=== PATIENT | female | born 1995 | race Caucasian/White ===

== ENCOUNTER 2021-01-31 04:41 | Emergency (ER) | payer OTHER, SELFPAY ==
[2021-01-31 04:49] VITALS: BP 131/91; PULSE 78; RESP 18; TEMP 36.6; O2SAT 97
--- NOTE | 2021-01-31 04:50 | DI.CT.S_ITS ---
PROCEDURE: CT KIDNEY URETER BLADDER (KUB) INDICATIONS: severe left flank pain, history of stones TECHNIQUE: Axial sections were acquired from the lung bases to the pubic symphysis. Coronal and sagittal reformats were performed. For radiation dose reduction, the following was used: automated exposure control, adjustment of mA and/or kV according to patient size. COMPARISON:None. FINDINGS: Image quality: Excellent. Lung bases: Unremarkable. Heart: No significant findings. URINARY: Right Kidney: No stones or hydronephrosis. Right Ureter: No hydroureter. Left Kidney: Mild left-sided hydronephrosis. Possible sub millimeter stone in the distal left ureter (series 2, image 82). Left Ureter: No hydroureter. Bladder: Normal wall thickness. No stones. ABDOMEN: Liver: Diffuse fatty infiltration of the liver. Gallbladder: Unremarkable. Biliary ducts: Unremarkable. Pancreas: Unremarkable. Spleen: Unremarkable. Adrenal Glands: Unremarkable. Stomach and Bowel: Stomach, small bowel loops, and colon are unremarkable. Peritoneum: No abnormal intraperitoneal fluid. No free air. Ventral Wall: No hernia. Abdominal Nodes: No enlarged retroperitoneal or mesenteric lymph nodes. Vessels: Aorta and inferior vena cava are normal in size. PELVIS: Pelvic Organs: Unremarkable. Pelvic Nodes: Unremarkable. Miscellaneous: No inguinal hernias are seen. Bones: Unremarkable. IMPRESSION: 1. Mild left-sided hydronephrosis with possible sub-millimeter stone in the distal left ureter. 2. Hepatic steatosis. Dictated by: Ara Muniz MD, PhD on 01/31/2021 at 7:25 Approved by: Ara Muniz MD, PhD on 01/31/2021 at 7:29
[2021-01-31] MEDS: KETOROLAC 30 MG/ML VIAL 15 MG IV (04:56)
[2021-01-31] MEDS: ONDANSETRON 4 MG/2 ML INJ IV (04:56)
[2021-01-31] MEDS: SODIUM CHLORIDE 0.9% 1,000 ML 1000 ML IV (04:57)
[2021-01-31 05:20] LABS: Add Manual Diff / Slide Review NO; Basophils Absolute Auto 100 /uL (0-100); Basophils Percent Auto 0.9 % (0-2); Eosinophils Absolute Auto 800 /uL (0-450); Eosinophils Percent Auto 5.4 % (2-4); Hematocrit 44.4 % (36-46); Hemoglobin 14.8 g/dL (12.0-16.0); Lymphocytes Absolute Auto 4200 /uL (1100-4500); Lymphocytes Percent Auto 26.9 % (25-40); Mean Corpuscular HGB Conc 33.3 % (30-36); Mean Corpuscular Hemoglobin 28.4 PG (26-34); Mean Corpuscular Volume 85.3 fL (80-100); Monocytes Absolute Auto 1000 /uL (0-900); Monocytes Percent Auto 6.6 % (3-14); Neutrophils Absolute Auto 9500 /uL (1500-7000); Neutrophils Percent Auto 60.2 % (50-75); Platelet Count 564 X10^3/uL (150-400); Red Blood Cell Count 5.21 X10^6/uL (4.0-5.2); Red Cell Distribution Width 13.7 % (11.6-14.8); White Blood Cell Count 15.7 X10^3/uL (4.5-11.0)
[2021-01-31 05:30] LABS: BUN Creatinine Ratio 11.8 (6-22); Blood Urea Nitrogen 15 mg/dL (7-17); Calcium 10.5 mg/dL (8.4-10.2); Carbon Dioxide 18 mmol/L (22-32); Chloride 107 mmol/L (98-107); Estimated Glomerular Filt Rate 51.3 mL/min (>60); Glucose 124 mg/dL (70-100); HEMOLYSIS < 15 (0-50); Potassium 4.1 mmol/L (3.4-5.1); Sodium 139 mmol/L (137-145)
--- NOTE | 2021-01-31 05:30 | ED.FEMALEGU ---
HPI - Female Genitourinary General Chief complaint: Urogenital-Female Stated complaint: possible kidney stone Time Seen by Provider: 01/31/21 04:45 Source: patient Mode of arrival: Wheelchair History of Present Illness HPI Narrative: 25-year-old female nonsmoker with history of kidney stones presents with a chief complaint of relatively sudden onset left flank pain radiates around to her groin. She states it is sharp and stabbing and a 10/10. She has associated nausea but denies vomiting. She states the pain largely comes and goes with the mind of its own and she is unable to find a position of comfort, however if you motions of seem to make the pain a bit worse. She has had no fever chills. She denies chest pain or shortness of breath. She is not dizzy nor weak or lightheaded. She states this feels very similar to prior episodes of kidney stone. She denies dysuria, frequency or urgency. She denies any vaginal bleeding or discharge. She denies any chance of Related Data Previous Rx's Medication Instructions Recorded hydrocodone 5 mg-acetaminophen 325 1 tab PO Q4-6H PRN #10 tab 01/31/21 mg tablet ketorolac 10 mg tablet 10 mg PO Q6H PRN #14 tab 01/31/21 tamsulosin 0.4 mg capsule (Flomax) 0.4 mg PO DAILY #10 cap 01/31/21 Allergies Allergy/AdvReac Type Severity Reaction Status Date / Time amoxicillin Allergy Verified 01/31/21 05:05 Review of Systems Review of Systems Narrative: GENERAL: Denies chills, fatigue, malaise, fever, sweats. HEENT: Denies sinus pain, ear pain, sore throat, difficulty swallowing, dizziness. RESPIRATORY: Denies dyspnea, cough, wheezing, hemoptysis, sputum. CARDIOVASCULAR: Denies chest pain, palpitations, orthopnea, edema, GASTROINTESTINAL: Denies nausea, vomiting, abdominal pain, diarrhea, constipation, melena. : See HPI MUSCULOSKELETAL: denies weakness, joint pain, or bony pain SKIN: Denies rash, skin lesions, or other NEUROLOGIC: Denies weakness, headache, numbness, change in speech, confusion, seizures, incoordination. PSYCHIATRIC: No concerning psychosocial issues. 12 point review of systems is negative except for those stated above Exam Narrative Exam Narrative: GENERAL: [25] year old patient appears stated age. Well-developed patient, in moderate distress, clearly very uncomfortable, pacing and rocking back and forth HEAD: Atraumatic. Normocephalic. EYES: Pupils equal round and reactive. Extraocular motions intact. No scleral icterus. No injection or drainage. ENT: Nose without bleeding, purulent drainage. Throat without erythema, tonsillar hypertrophy or exudate. Airway patent. NECK: Trachea midline. Non tender CARDIOVASCULAR: Regular rate and rhythm without murmurs, gallops, or rubs. RESPIRATORY: Clear to auscultation. Breath sounds equal bilaterally. No wheezes, rales, or rhonchi. GASTROINTESTINAL: Abdomen soft, non-tender, nondistended. EXTREMITIES: No edema or joint tenderness. BACK: Nontender without deformity or crepitance. No flank tenderness. NEURO: AOx3. SKIN: No rash or erythema of visible areas Initial Vital Signs Initial Vital Signs: Vital Signs Temperature 97.8 F 01/31/21 04:49 Pulse Rate 78 01/31/21 04:49 Respiratory Rate 18 01/31/21 04:49 Blood Pressure 131/91 H 01/31/21 04:49 Pulse Oximetry 97 01/31/21 04:49 Course Orders Ordered: ED Orders 01/31/21 04:50 CT kidney ureter bladder (KUB) Stat 01/31/21 05:00 Basic Metabolic Panel Stat Complete Blood Count AUTO DIFF Stat Discontinued Medications Hydrocodone Bitart/Acetaminophen (Hydrocodone/Acet 5/325 Prepack) 1 bottle MISC SEEINSTR ONE Stop: 01/31/21 06:24 Last Admin: 01/31/21 06:31 Dose: 1 bottle Documented by: [email or web address] Hydromorphone HCl (Hydromorphone 0.5 Mg Inj) 0.5 mg IV NOW ONE Stop: 01/31/21 06:28 Last Admin: 01/31/21 06:32 Dose: 0.5 mg Documented by: [email or web address] Sodium Chloride (Normal Saline 0.9%) 1,000 mls @ 1,000 mls/hr IV BOLUS ONE Stop: 01/31/21 05:48 Last Infusion: 01/31/21 06:08 Dose: 0 mls/hr Documented by: Admin: 01/31/21 04:57 Dose: 1,000 mls/hr Documented by: [email or web address] Ketorolac Tromethamine (Ketorolac 30 Mg/Ml Vial) 15 mg IV NOW ONE Stop: 01/31/21 04:50 Last Admin: 01/31/21 04:56 Dose: 15 mg Documented by: [email or web address] Ondansetron HCl (Ondansetron 4 Mg/2 Ml Inj) 4 mg IV NOW ONE Stop: 01/31/21 04:50 Last Admin: 01/31/21 04:56 Dose: 4 mg Documented by: [email or web address] Ondansetron HCl (Ondansetron 4 Mg Odt Prepack) 1 bottle MISC SEEINSTR ONE Stop: 01/31/21 06:24 Last Admin: 01/31/21 06:31 Dose: 1 bottle Documented by: [email or web address] Reevaluation(s) Reevaluation #1: Patient has had a near complete resolution of symptoms after above-stated therapies. Vital Signs Vital signs: Vital Signs - 8 hr 01/31/21 04:49 01/31/21 06:37 Temperature 97.8 F Pulse Rate 78 71 Respiratory Rate 18 Blood Pressure 131/91 H 128/80 Pulse Oximetry 97 99 MDM - Female Genitourinary Lab Data Result diagrams: 01/31/21 05:00 01/31/21 05:00 Labs: Lab Results 01/31/21 01/31/21 Range/Units 05:00 05:00 WBC 15.7 H (4.5-11.0) X10^3/uL RBC 5.21 H (4.0-5.2) X10^6/uL Hgb 14.8 (12.0-16.0) g/dL Hct 44.4 (36-46) % MCV 85.3 (80-100) fL MCH 28.4 (26-34) PG MCHC 33.3 (30-36) % RDW 13.7 (11.6-14.8) % Plt Count 564 H (150-400) X10^3/uL Neut % (Auto) 60.2 (50-75) % Lymph % (Auto) 26.9 (25-40) % [facility] % (Auto) 6.6 (3-14) % Eos % (Auto) 5.4 H (2-4) % Baso % (Auto) 0.9 (0-2) % Neut # (Auto) 9500 H (9044-4625) /uL Lymph # (Auto) 4200 (2478-0994) /uL [facility] # (Auto) 1000 H (0-900) /uL Eos # (Auto) 800 H (0-450) /uL Baso # (Auto) 100 (0-100) /uL Sodium 139 (137-145) mmol/L Potassium 4.1 (3.4-5.1) mmol/L Chloride 107 (98-107) mmol/L Carbon Dioxide 18 L (22-32) mmol/L BUN 15 (7-17) mg/dL Creatinine 1.27 H (0.52-1.04) mg/dL Estimated GFR 51.3 L (>60) mL/min BUN/Creatinine Ratio 11.8 (6-22) Glucose 124 H (70-100) mg/dL Calcium 10.5 H (8.4-10.2) mg/dL Urine Dip Bedside Urine Glucose Negative Bedside Urine Bilirubin + 1 Bedside Urine Ketone - Negative Urine Specific Latty 1.030 Bedside Urine Occult Blood +++ Bedside Urine pH 6.0 Bedside Urine Protein + 30 Bedside Urine Urobilinogen - Negative Bedside Urine Nitrite - Negative Bedside Urine Leukocytes - Negative Esterase Imaging Data CT KUB: Radiologist's Impression: Mild left-sided hydronephrosis without renal or ureteral calculi. Recently passed stone or infectious process considered MDM Narrative Medical decision making narrative: Patient has severe colicky flank pain with hematuria in the absence of signs of infection. Kidney stone seems to be the most likely diagnosis given her history, physical exam and urine. The CT shows no stone but suggest hydro and the possibility of a passed stone. Her pain is well controlled above-stated therapies. She has extensive return precautions and questions answered to her apparent satisfaction. Discharge Plan Departure Patient Disposition: Home Clinical Impression: Acute flank pain Hematuria Qualifiers: Hematuria type: unspecified type Qualified Code(s): R31.9 - Hematuria, unspecified Instructions: DI for Kidney Stones Activity Restrictions/Additional Instructions: *You have been diagnosed with [left flank pain, likely a kidney stone. No sign of infection] *What to do: *Please continue to take your regular medications as directed. [x ] New medication prescriptions sent to your pharmacy: [ ] [ ] New medication written as a paper prescription [ ] No new medications given *Please follow up with your primary care provider in 2-3 days, call for an appointment. Let them know you were seen in the Emergency Department and that we ask that you be seen in follow up. We will electronically transmit a record of today's note if your PCP is in our system *If you do not have a primary care provider please contact the [facility] Resource line at [phone]. They will ask some questions about your medical history and help get you set up with a doctor in the community. *Return to Emergency Department if you should have any new, worsening or concerning symptoms, such as [fever greater than 101 F, shaking chills, worsening pain, persistent vomiting or other bothersome symptoms] Prescriptions: New hydrocodone-acetaminophen 5-325 mg tablet 1 tab PO Q4-6H PRN (Reason: pain) Qty: 10 RF: 0 ketorolac 10 mg tablet 10 mg PO Q6H PRN (Reason: pain) Qty: 14 RF: 0 tamsulosin [Flomax] 0.4 mg capsule 0.4 mg PO DAILY Qty: 10 RF: 0
[2021-01-31] MEDS: ONDANSETRON 4 MG ODT PREPACK 1 BOTTLE MISC (06:31)
[2021-01-31] MEDS: HYDROCODONE/ACET 5/325 PREPACK 1 BOTTLE MISC (06:31)
[2021-01-31] MEDS: HYDROMORPHONE 0.5 MG INJ IV (06:32)
[2021-01-31 06:37] VITALS: BP 128/80; PULSE 71; O2SAT 99
== END 2021-01-31 07:00 | disposition home or self-care (01) ==
PROVIDERS: Emergency Provider Emergency Medicine
DX: R10.9 Unspecified abdominal pain (principal); R11.0 Nausea; R31.9 Hematuria, unspecified; Z87.442 Personal history of urinary calculi
CPT/HCPCS: 36415; 74176; 80048; 81003; 85025; 96361; 96374; 96375; 99284; J1170; J1885; J2405

== ENCOUNTER 2022-05-08 14:22 | Emergency (ER) | payer OTHER, MEDICAID, SELFPAY ==
[2022-05-08 14:36] VITALS: BP 144/66; PULSE 66; RESP 20; TEMP 36.5; O2SAT 98
[2022-05-08 15:02] LABS: Add Manual Diff / Slide Review NO; Basophils Absolute Auto 100 /uL (0-100); Basophils Percent Auto 1.1 % (0-2); Eosinophils Absolute Auto 500 /uL (0-450); Hematocrit 40.9 % (36-46); Hemoglobin 14.2 g/dL (12.0-16.0); Lymphocytes Absolute Auto 3200 /uL (1100-4500); Lymphocytes Percent Auto 33.5 % (25-40); Mean Corpuscular HGB Conc 34.6 % (30-36); Mean Corpuscular Hemoglobin 29.5 PG (26-34); Mean Corpuscular Volume 85.1 fL (80-100); Monocytes Absolute Auto 700 /uL (0-900); Monocytes Percent Auto 7.7 % (3-14); Neutrophils Absolute Auto 5000 /uL (1500-7000); Neutrophils Percent Auto 52.7 % (50-75); Platelet Count 468 X10^3/uL (150-400); Red Cell Distribution Width 13.5 % (11.6-14.8); White Blood Cell Count 9.6 X10^3/uL (4.5-11.0)
[2022-05-08 15:14] LABS: Alanine Aminotransferase 32 IU/L (<35); Albumin 4.3 g/dL (3.5-5.0); Albumin Globulin Ratio 1.2 (1.0-2.8); Alkaline Phosphatase 79 U/L (38-126); Aspartate Aminotransferase 25 IU/L (14-36); BUN Creatinine Ratio 6.9 (6-22); Bilirubin Total 0.2 mg/dL (0.2-1.3); Blood Urea Nitrogen 7 mg/dL (7-17); Calcium 9.2 mg/dL (8.4-10.2); Carbon Dioxide 23 mmol/L (22-32); Chloride 108 mmol/L (98-107); Estimated Glomerular Filt Rate > 60 mL/min (>60); Globulin 3.7 g/dL (1.7-4.1); Glucose 100 mg/dL (70-100); HEMOLYSIS < 15 (0-50); Lipase 66 U/L (23-300); Potassium 4.1 mmol/L (3.4-5.1); Sodium 141 mmol/L (137-145)
--- NOTE | 2022-05-08 17:30 | DI.CT.S_ITS ---
PROCEDURE: CT ABDOMEN PELVIS W CON INDICATIONS: ?kidney stones TECHNIQUE: After the administration of oral and IV contrast, axial sections were acquired from the lung bases to the pubic symphysis. Coronal and sagittal reformats were performed. For radiation dose reduction, the following was used: automated exposure control, adjustment of mA and/or kV according to patient size. COMPARISON: None. FINDINGS: Image quality: Excellent. Lung bases: Unremarkable. Heart: No significant findings. ABDOMEN: Liver: Normal size. Moderate hepatic steatosis. Gallbladder: Unremarkable. Biliary ducts: Unremarkable. Pancreas: Unremarkable. Spleen: Unremarkable. Adrenal Glands: Unremarkable. Kidneys and Ureters: There is a 3 mm stone in the distal right ureter near the right UVJ. There is mild right hydronephrosis. No left renal stone or hydronephrosis. Stomach and Bowel: Stomach, small bowel loops, and colon are unremarkable. Normal appendix. Peritoneum: No abnormal intraperitoneal fluid. No free air. Ventral Wall: No hernia. Abdominal Nodes: No retroperitoneal or mesenteric adenopathy by size criteria. Vessels: Aorta and inferior vena cava are normal in size. PELVIS: Pelvic Organs: Uterus and ovaries are grossly normal. There is a small amount of free fluid in the cul-de-sac, probably within physiological limits. Bladder: Unremarkable. Pelvic Nodes: No enlarged lymph nodes. Miscellaneous: No inguinal hernias are seen. Bones: Unremarkable. IMPRESSION: 1. A 3 mm obstructive stone in the distal right ureter causing mild right hydronephrosis. 2. Hepatic steatosis. 3. A small amount of free fluid in the cul-de-sac, probably within physiological limits. Dictated by: Sarahy Mejia M.D. on 05/08/2022 at 18:18 Approved by: Sarahy Mejia M.D. on 05/08/2022 at 18:25
--- NOTE | 2022-05-08 17:34 | ED_ITS ---
HPI - Abdominal Pain <Alice Rust PA-C - Last Filed: 05/08/22 19:06> General Chief Complaint: Abdominal Pain Stated Complaint: hx kidney stones/back pain Time Seen by Provider: 05/08/22 17:11 Source: patient Mode of arrival: Ambulatory History of Present Illness HPI narrative: 27-year-old female with past medical history depression, ADHD, nephrolithiasis presents to the ED with 5 days of right-sided flank pain. Patient states that the pain has been intermittent, was 7/10 this morning, is now 2 or 3/10. Patie nt states that she feels nauseous when the pain intensifies. Patient denies fever, chills, vomiting, chest pain, shortness of breath, dysuria, abdominal pain, lightheadedness, dizziness, syncope. Patient states it feels uncomfortable to pee. Patient states she has had multiple kidney stones since she was 16 years old, however has not needed any surgical interventions for it. Related Data Previous Rx's Medication Instructions Recorded hydrocodone 5 mg-acetaminophen 325 1 tab PO Q4-6H PRN pain #10 tabs 01/31/21 mg tablet ketorolac 10 mg tablet 10 mg PO Q6H PRN pain #14 tabs 01/31/21 tamsulosin 0.4 mg capsule (Flomax) 0.4 mg PO DAILY #10 caps 01/31/21 ondansetron 4 mg disintegrating 4 mg PO Q8H PRN nausea and 05/08/22 tablet vomiting #20 tabs tamsulosin 0.4 mg capsule 0.4 mg PO BEDTIME #30 caps 05/08/22 Allergies Allergy/AdvReac Type Severity Reaction Status Date / Time amoxicillin Allergy Verified 01/31/21 05:05 Review of Systems <Alice Rust PA-C - Last Filed: 05/08/22 19:06> Review of Systems ROS Unobtainable: All systems reviewed & are unremarkable except as noted in HPI and below Constitutional Constitutional: Denies chills, Denies fatigue, Denies fever(s), Denies frequent falls, Denies lethargy and Denies weakness Eyes Eyes: Denies change in vision, Denies eye discharge, Denies irritation and Denies loss of vision ENT Ears, Nose, Mouth, and Throat: Denies change in voice, Denies dizziness, Denies neck pain, Denies sore throat and Denies throat swelling Cardiovascular Cardiovascular: Denies chest pain, Denies irregular heart rhythm, Denies lightheadedness, Denies palpitations, Denies dyspnea, Denies dyspnea on exertion and Denies orthopnea Respiratory Respiratory: Denies cough, Denies dyspnea, Denies dyspnea on exertion and Denies wheezing Gastrointestinal Gastrointestinal: Denies abdominal pain, Denies change in bowel habits, Denies diarrhea, Reports nausea and Denies vomiting Genitourinary Genitourinary: Denies hematuria, Denies flank pain, Denies urinary incontinence and Denies urinary urgency Comments: Right-sided flank pain Musculoskeletal Musculoskeletal: Denies back pain, Denies muscle weakness, Denies neck pain, Denies numbness and Denies tingling Integumentary/Breasts Skin/Breast: Denies pruritus, Denies erythema, Denies rash and Denies wounds Neurologic Neurologic: Denies behavioral changes, Denies confusion, Denies dizziness, Denies frequent falls, Denies loss of vision, Denies numbness, Denies tingling and Denies weakness Psychiatric Psychiatric: Denies anxiety, Denies behavioral changes, Denies confusion, Denies depression, Denies homicidal ideation and Denies suicidal ideation Endocrine Endocrine: Denies fatigue, Denies flushing and Denies palpitations Hematologic/Lymphatic Hematologic/Lymphatic: Denies easy bruising Allergic/Immunologic Allergic/Immunologic: Denies urticaria, Denies throat swelling and Denies wheezing Patient History <Alice Rust PA-C - Last Filed: 05/08/22 19:06> Social History Smoking Status: Never smoker Smoking Status: Never smoker Exam <Alice Rust PA-C - Last Filed: 05/08/22 19:06> Narrative Exam Narrative: Const General:?cooperative, healthy appearing and comfortable [facility] Head:?normal to inspection Ears:?hearing grossly normal bilaterally Nose:?external nose normal Face and sinus:?normal facial exam and sinuses nontender Mouth:?oral mucosae normal Throat:?posterior oropharynx normal Eyes General:?appearance normal, both eyes and all related structures Neck Neck:?normal visual inspection and no lymphadenopathy noted Resp Effort & Inspection:?normal respiratory effort Auscultation:?clear to auscultation bilaterally Cardio Rate:?regular rate Rhythm:?regular rhythm GI Abdomen is soft, nondistended, nontender to palpation. There is positive right-sided CVA tenderness. Neuro General:?patient alert, patient awake and patient oriented x3 Initial Vital Signs Initial Vital Signs: Vital Signs Temperature 97.7 F 05/08/22 14:36 Pulse Rate 66 05/08/22 14:36 Respiratory Rate 20 05/08/22 14:36 Blood Pressure 144/66 H 05/08/22 14:36 Pulse Oximetry 98 05/08/22 14:36 Oxygen Delivery Method 05/08/22 14:36 <Demian Pickett DO - Last Filed: 05/09/22 07:17> Initial Vital Signs Initial Vital Signs: Vital Signs Temperature 97.7 F 05/08/22 14:36 Pulse Rate 66 05/08/22 14:36 Respiratory Rate 20 05/08/22 14:36 Blood Pressure 144/66 H 05/08/22 14:36 Pulse Oximetry 98 05/08/22 14:36 Oxygen Delivery Method 05/08/22 14:36 Course <Alice Rust PA-C - Last Filed: 05/08/22 19:06> Orders Ordered: Discontinued Medications Ketorolac Tromethamine (Ketorolac 30 Mg/Ml Vial) 15 mg IV NOW ONE Stop: 05/08/22 17:31 Last Admin: 05/08/22 18:06 Dose: 15 mg Documented By: DALILA Vital Signs Vital signs: Vital Signs - 8 hr 05/08/22 14:36 05/08/22 18:57 Temperature 97.7 F Pulse Rate 66 70 Respiratory Rate 20 16 Blood Pressure 144/66 H 138/80 Pulse Oximetry 98 100 Oxygen Delivery Method Room Air Room Air <Demian Pickett DO - Last Filed: 05/09/22 07:17> Orders Ordered: Discontinued Medications Ketorolac Tromethamine (Ketorolac 30 Mg/Ml Vial) 15 mg IV NOW ONE Stop: 05/08/22 17:31 Last Admin: 05/08/22 18:06 Dose: 15 mg Documented By: DALILA Vital Signs Vital signs: Vital Signs - 8 hr 05/08/22 14:36 05/08/22 18:57 Temperature 97.7 F Pulse Rate 66 70 Respiratory Rate 20 16 Blood Pressure 144/66 H 138/80 Pulse Oximetry 98 100 Oxygen Delivery Method Room Air Room Air MDM - Abdominal Pain <GIL Land-C - Last Filed: 05/08/22 19:06> Lab Data Result diagrams: 05/08/22 14:42 05/08/22 14:42 Labs: Lab Results 05/08/22 05/08/22 05/08/22 Range/Units 14:42 14:42 14:42 WBC 9.6 (4.5-11.0) X10^3/uL RBC 4.80 (4.0-5.2) X10^6/uL Hgb 14.2 (12.0-16.0) g/dL Hct 40.9 (36-46) % MCV 85.1 (80-100) fL MCH 29.5 (26-34) PG MCHC 34.6 (30-36) % RDW 13.5 (11.6-14.8) % Plt Count 468 H (150-400) X10^3/uL Neut % (Auto) 52.7 (50-75) % Lymph % (Auto) 33.5 (25-40) % [place] % (Auto) 7.7 (3-14) % Eos % (Auto) 5.0 H (2-4) % Baso % (Auto) 1.1 (0-2) % Neut # (Auto) 5000 (3450-9182) /uL Lymph # (Auto) 3200 (9806-1981) /uL [place] # (Auto) 700 (0-900) /uL Eos # (Auto) 500 H (0-450) /uL Baso # (Auto) 100 (0-100) /uL Sodium 141 (137-145) mmol/L Potassium 4.1 (3.4-5.1) mmol/L Chloride 108 H (98-107) mmol/L Carbon Dioxide 23 (22-32) mmol/L BUN 7 (7-17) mg/dL Creatinine 1.01 (0.52-1.04) mg/dL Estimated GFR > 60 (>60) mL/min BUN/Creatinine Ratio 6.9 (6-22) Glucose 100 (70-100) mg/dL Lactate 1.2 (0.7-2.1) mmol/L Calcium 9.2 (8.4-10.2) mg/dL Total Bilirubin 0.2 (0.2-1.3) mg/dL AST 25 (14-36) IU/L ALT 32 (<35) IU/L Alkaline Phosphatase 79 (38-126) U/L Total Protein 8.0 (6.3-8.2) g/dL Albumin 4.3 (3.5-5.0) g/dL Globulin 3.7 (1.7-4.1) g/dL Albumin/Globulin Ratio 1.2 (1.0-2.8) Lipase 66 (23-300) U/L Urine RBC (0-5/HPF) Urine WBC (0-5/HPF) Ur Squamous Epith Cells (0-5/HPF) Urine Bacteria (None) 05/08/22 Range/Units 17:30 WBC (4.5-11.0) X10^3/uL RBC (4.0-5.2) X10^6/uL Hgb (12.0-16.0) g/dL Hct (36-46) % MCV (80-100) fL MCH (26-34) PG MCHC (30-36) % RDW (11.6-14.8) % Plt Count (150-400) X10^3/uL Neut % (Auto) (50-75) % Lymph % (Auto) (25-40) % [place] % (Auto) (3-14) % Eos % (Auto) (2-4) % Baso % (Auto) (0-2) % Neut # (Auto) (4814-8342) /uL Lymph # (Auto) (3198-4113) /uL [place] # (Auto) (0-900) /uL Eos # (Auto) (0-450) /uL Baso # (Auto) (0-100) /uL Sodium (137-145) mmol/L Potassium (3.4-5.1) mmol/L Chloride (98-107) mmol/L Carbon Dioxide (22-32) mmol/L BUN (7-17) mg/dL Creatinine (0.52-1.04) mg/dL Estimated GFR (>60) mL/min BUN/Creatinine Ratio (6-22) Glucose (70-100) mg/dL Lactate (0.7-2.1) mmol/L Calcium (8.4-10.2) mg/dL Total Bilirubin (0.2-1.3) mg/dL AST (14-36) IU/L ALT (<35) IU/L Alkaline Phosphatase (38-126) U/L Total Protein (6.3-8.2) g/dL Albumin (3.5-5.0) g/dL Globulin (1.7-4.1) g/dL Albumin/Globulin Ratio (1.0-2.8) Lipase (23-300) U/L Urine RBC 1-5/hpf (0-5/HPF) Urine WBC 1-5/hpf (0-5/HPF) Ur Squamous Epith Cells 1-5 /hpf (0-5/HPF) Urine Bacteria Many (>30) H (None) Point of care testing: Point of Care Testing Test Results Negative Urine Dip Bedside Urine Glucose Negative Bedside Urine Bilirubin - Negative Bedside Urine Ketone - Negative Urine Specific [place] 1.025 Bedside Urine Occult Blood + Bedside Urine pH 6.0 Bedside Urine Protein - Negative Bedside Urine Urobilinogen - Negative Bedside Urine Nitrite - Negative Bedside Urine Leukocytes - Negative Esterase Imaging Data CT scan - abdomen/pelvis: Radiologist's Impression: PROCEDURE:? CT ABDOMEN PELVIS W CON ? INDICATIONS:? ?kidney stones ? TECHNIQUE:? After the administration of oral and IV contrast, axial sections were acquired from the lung bases to the pubic symphysis.? Coronal and sagittal reformats were performed.? For radiation dose reduction, the following was used:? automated exposure control, adjustment of mA and/or kV according to patient size. ? COMPARISON:? None. ? FINDINGS:? Image quality:? Excellent.? ? Lung bases:? Unremarkable.? ? Heart:? No significant findings. ? ? ABDOMEN: Liver:? Normal size.? Moderate hepatic steatosis.? ? Gallbladder:? Unremarkable.? ? Biliary ducts:? Unremarkable.? ? Pancreas:? Unremarkable.? ? Spleen:? Unremarkable.? ? Adrenal Glands:? Unremarkable.? ? Kidneys and Ureters:? There is a 3 mm stone in the distal right ureter near the right UVJ.? There is mild right hydronephrosis.? No left renal stone or hydronephrosis. ? Stomach and Bowel:? Stomach, small bowel loops, and colon are unremarkable.? Normal appendix. Peritoneum:? No abnormal intraperitoneal fluid.? No free air.? ? Ventral Wall: ? No hernia.? Abdominal Nodes:? No retroperitoneal or mesenteric adenopathy by size criteria.? Vessels:? Aorta and inferior vena cava are normal in size.? ? PELVIS: Pelvic Organs:? Uterus and ovaries are grossly normal.? There is a small amount of free fluid in the cul-de-sac, probably within physiological limits.? ? Bladder:? Unremarkable.? ? Pelvic Nodes: No enlarged lymph nodes.? Miscellaneous: No inguinal hernias are seen. ? ? ? Bones:? Unremarkable.? IMPRESSION:? ? 1. A 3 mm obstructive stone in the distal right ureter causing mild right hydronephrosis. ? 2. Hepatic steatosis. ? 3. A small amount of free fluid in the cul-de-sac, probably within physiological limits.? Dictated by: Sarahy Mejia M.D. on 05/08/2022 at 18:18 ? ? MDM Narrative Medical decision making narrative: 27-year-old female with past medical history depression, ADHD, nephrolithiasis presents to the ED with 5 days of right-sided flank pain. Concern for nephrolithiasis versus UTI versus pyelonephritis versus other intra-abdominal pathology. Will obtain labs, lactate, lipase, UA, hCG, CT abdomen pelvis. Will give ketorolac for pain. Will reassess. UA negative for UTI. Labs within normal limits. CT shows 3 mm obstructing stone with mild hydronephrosis in the right distal ureter near the UVJ. Discussed that any stones 5 mm and LEs have a very high probability of passing spontaneously. Discharged patient on tamsulosin, Zofran. Recommend continued use of Toradol, Tylenol for pain control. ED return precautions were discussed with patient. Patient verbalized understanding. <Demian Pickett DO - Last Filed: 05/09/22 07:17> Lab Data Labs: Lab Results 05/08/22 05/08/22 05/08/22 Range/Units 14:42 14:42 14:42 WBC 9.6 (4.5-11.0) X10^3/uL RBC 4.80 (4.0-5.2) X10^6/uL Hgb 14.2 (12.0-16.0) g/dL Hct 40.9 (36-46) % MCV 85.1 (80-100) fL MCH 29.5 (26-34) PG MCHC 34.6 (30-36) % RDW 13.5 (11.6-14.8) % Plt Count 468 H (150-400) X10^3/uL Neut % (Auto) 52.7 (50-75) % Lymph % (Auto) 33.5 (25-40) % [place] % (Auto) 7.7 (3-14) % Eos % (Auto) 5.0 H (2-4) % Baso % (Auto) 1.1 (0-2) % Neut # (Auto) 5000 (0315-7455) /uL Lymph # (Auto) 3200 (0645-8675) /uL [place] # (Auto) 700 (0-900) /uL Eos # (Auto) 500 H (0-450) /uL Baso # (Auto) 100 (0-100) /uL Sodium 141 (137-145) mmol/L Potassium 4.1 (3.4-5.1) mmol/L Chloride 108 H (98-107) mmol/L Carbon Dioxide 23 (22-32) mmol/L BUN 7 (7-17) mg/dL Creatinine 1.01 (0.52-1.04) mg/dL Estimated GFR > 60 (>60) mL/min BUN/Creatinine Ratio 6.9 (6-22) Glucose 100 (70-100) mg/dL Lactate 1.2 (0.7-2.1) mmol/L Calcium 9.2 (8.4-10.2) mg/dL Total Bilirubin 0.2 (0.2-1.3) mg/dL AST 25 (14-36) IU/L ALT 32 (<35) IU/L Alkaline Phosphatase 79 (38-126) U/L Total Protein 8.0 (6.3-8.2) g/dL Albumin 4.3 (3.5-5.0) g/dL Globulin 3.7 (1.7-4.1) g/dL Albumin/Globulin Ratio 1.2 (1.0-2.8) Lipase 66 (23-300) U/L Urine RBC (0-5/HPF) Urine WBC (0-5/HPF) Ur Squamous Epith Cells (0-5/HPF) Urine Bacteria (None) 05/08/22 Range/Units 17:30 WBC (4.5-11.0) X10^3/uL RBC (4.0-5.2) X10^6/uL Hgb (12.0-16.0) g/dL Hct (36-46) % MCV (80-100) fL MCH (26-34) PG MCHC (30-36) % RDW (11.6-14.8) % Plt Count (150-400) X10^3/uL Neut % (Auto) (50-75) % Lymph % (Auto) (25-40) % [place] % (Auto) (3-14) % Eos % (Auto) (2-4) % Baso % (Auto) (0-2) % Neut # (Auto) (2122-5306) /uL Lymph # (Auto) (8489-5748) /uL [place] # (Auto) (0-900) /uL Eos # (Auto) (0-450) /uL Baso # (Auto) (0-100) /uL Sodium (137-145) mmol/L Potassium (3.4-5.1) mmol/L Chloride (98-107) mmol/L Carbon Dioxide (22-32) mmol/L BUN (7-17) mg/dL Creatinine (0.52-1.04) mg/dL Estimated GFR (>60) mL/min BUN/Creatinine Ratio (6-22) Glucose (70-100) mg/dL Lactate (0.7-2.1) mmol/L Calcium (8.4-10.2) mg/dL Total Bilirubin (0.2-1.3) mg/dL AST (14-36) IU/L ALT (<35) IU/L Alkaline Phosphatase (38-126) U/L Total Protein (6.3-8.2) g/dL Albumin (3.5-5.0) g/dL Globulin (1.7-4.1) g/dL Albumin/Globulin Ratio (1.0-2.8) Lipase (23-300) U/L Urine RBC 1-5/hpf (0-5/HPF) Urine WBC 1-5/hpf (0-5/HPF) Ur Squamous Epith Cells 1-5 /hpf (0-5/HPF) Urine Bacteria Many (>30) H (None) Point of care testing: Point of Care Testing Test Results Negative Urine Dip Bedside Urine Glucose Negative Bedside Urine Bilirubin - Negative Bedside Urine Ketone - Negative Urine Specific [place] 1.025 Bedside Urine Occult Blood + Bedside Urine pH 6.0 Bedside Urine Protein - Negative Bedside Urine Urobilinogen - Negative Bedside Urine Nitrite - Negative Bedside Urine Leukocytes - Negative Esterase Discharge Plan Departure Patient Disposition: Home Clinical Impression: Calculus of kidney Instructions: DI for Kidney Stones Activity Restrictions/Additional Instructions: You were evaluated in the ED today for right-sided flank pain. Your CT shows a 3 mm obstructing stone in the right distal ureter, very close to the bladder. Stones 5 mm and under have a very high probability of passing without any interventions. Your labs were normal and your urine is normal as well. We recommend that you take tamsulosin nightly, stay well hydrated, take ibuprofen for pain, Zofran for nausea. Return to the ED if you have uncontrollable pain, persistent vomiting, fevers, chills. Prescriptions: New tamsulosin 0.4 mg capsule 0.4 mg PO BEDTIME Qty: 30 0RF ondansetron 4 mg tablet,disintegrating 4 mg PO Q8H PRN (Reason: nausea and vomiting) Qty: 20 0RF No Action hydrocodone-acetaminophen 5-325 mg tablet 1 tab PO Q4-6H PRN (Reason: pain) Qty: 10 0RF ketorolac 10 mg tablet 10 mg PO Q6H PRN (Reason: pain) Qty: 14 0RF tamsulosin [Flomax] 0.4 mg capsule 0.4 mg PO DAILY Qty: 10 0RF Stand Alone Forms: Work Release Note Visit Report Forms: Patient Portal/API <Demian Pickett, DO - Last Filed: 05/09/22 07:17> [facility] Dr Pickett Co-Sign Statement: I was available for consultation during this patient's emergency department visit. This chart is signed by myself for administrative purposes only. I did not have direct contact with this patient during this visit. They were seen independently by the APC.
[2022-05-08 17:59] LABS: Lactate (Lactic Acid) 1.2 mmol/L (0.7-2.1)
[2022-05-08] MEDS: KETOROLAC 30 MG/ML VIAL 15 MG IV (18:06)
[2022-05-08 18:33] LABS: Bacteria Urine Many (>30); RBC Urine 1-5/HPF (0-5/HPF); Squamous Epithelial Cell Urine 1-5 /HPF (0-5/HPF); WBC Urine 1-5/HPF (0-5/HPF)
[2022-05-08] MEDS: ONDANSETRON 4 MG/2 ML INJ (18:47)
[2022-05-08 18:57] VITALS: BP 138/80; PULSE 70; RESP 16; O2SAT 100
== END 2022-05-08 19:06 | disposition home or self-care (01) ==
PROVIDERS: Emergency Medicine; Emergency Provider Student in an Organized Health Care Education/Training Program
DX: N20.0 Calculus of kidney (principal); R11.0 Nausea
CPT/HCPCS: 74177; 80053; 81003; 81015; 81025; 83605; 83690; 85025; 87086; 96374; 96375; 99283; 99284; J1885; J2405; Q9967